=== PATIENT | female | born 1950 | race Caucasian/White ===

== ENCOUNTER 2019-04-08 12:51 | Observation (INO) | payer OTHER ==
--- NOTE | 2019-04-08 13:03 | PDOC ---
History of Present Illness - General Chief Complaint: Nausea/Vomiting Stated Complaint: VOMITING Time Seen by Provider: 04/08/19 13:01 - History of Present Illness Initial Comments: 04/08/19 13:03 Ms. Hu is a 69 yo female w/ pmh of HTN, DM, gastritis (followed by Dr. Birch, started on ranitidine yesterday) and R breast cancer s/p lobectomy in 2009 w/out recurrence who presents for evaluation of upper abdominal pain since this morning that is reminiscent to a prior episode of severe gastritis. Patient denies any associated symptoms and was previously in her normal state of health before symptoms started this morning. The patient denies chest pain, shortness of breath, headache and dizziness. Denies fever, chills, nausea, vomit, diarrhea and constipation. Denies dysuria, frequency, urgency and hematuria. Past History - Past Medical History Allergies/Adverse Reactions: Allergies Allergy/AdvReac Type Severity Reaction Status Date / Time No Known Drug Allergies Allergy Unknown Verified 08/28/16 08:28 Home Medications: Ambulatory Orders Paroxetine HCl [Paxil -] 10 mg PO DAILY 10/12/12 Amlodipine Besylate [Norvasc -] 5 mg PO DAILY 06/26/15 Lisinopril/Hydrochlorothiazide [Lisinopril-Hctz 20-12.5 mg Tab] 1 each PO DAILY 06/26/15 metFORMIN HCL [Glucophage -] 500 mg PO DAILY 08/27/16 Calcium Carbonate/Vitamin D3 [Calcium 500 + Vit D Caplet] 1 each PO DAILY Hydrocodone/Acetaminophen [Vicodin 5-300 mg Tablet] 1 - 2 tab PO TID PRN #50 tablet MDD 6 08/28/16 Anemia: No Asthma: No Cancer: Yes (right lumpectomy rx chemo/radiation) Cardiac Disorders: No CVA: No COPD: No CHF: No Dementia: No Diabetes: Yes GI Disorders: No Disorders: No HTN: Yes Hypercholesterolemia: No Liver Disease: No Seizures: No Thyroid Disease: No - Surgical History Abdominal Surgery: No Appendectomy: No Cardiac Surgery: No Cholecystectomy: No Lung Surgery: No Neurologic Surgery: No Orthopedic Surgery: Yes (LEFT KNEE - ARTHOSCOPY) - Suicide/Smoking/Psychosocial Hx Smoking Status: No Smoking History: Never smoked Have you smoked in the past 12 months: No Number of Cigarettes Smoked Daily: 0 Information on smoking cessation initiated: No Hx Alcohol Use: No Drug/Substance Use Hx: No Substance Use Type: None Hx Substance Use Treatment: No Review of Systems - Review of Systems Comments:: 04/08/19 13:16 GENERAL/CONSTITUTIONAL: No fever or chills. No weakness. HEAD, EYES, EARS, NOSE AND THROAT: No change in vision. No ear pain or discharge. No sore throat. CARDIOVASCULAR: No chest pain or shortness of breath RESPIRATORY: No cough, wheezing, or hemoptysis. GASTROINTESTINAL: +Upper abdominal pain as described. No nausea, vomiting, diarrhea or constipation. GENITOURINARY: No dysuria, frequency, or change in urination. MUSCULOSKELETAL: No joint or muscle swelling or pain. No neck or back pain. SKIN: No rash NEUROLOGIC: No headache, vertigo, loss of consciousness, or change in strength/ sensation. ENDOCRINE: No increased thirst. No abnormal weight change HEMATOLOGIC/LYMPHATIC: No anemia, easy bleeding, or history of blood clots. ALLERGIC/IMMUNOLOGIC: No hives or skin allergy. *Physical Exam - Vital Signs Last Vital Signs Temp Pulse Resp BP Pulse Ox 97.3 F L 77 16 158/80 100 04/08/19 12:56 04/08/19 12:56 04/08/19 12:56 04/08/19 12:56 04/08/19 12:56 - Physical Exam Comments: 04/08/19 13:16 GENERAL: Awake, alert, and fully oriented, in no acute distress HEAD: No signs of trauma, normocephalic, atraumatic EYES: PERRLA, EOMI, sclera anicteric, conjunctiva clear ENT: Auricles normal inspection, hearing grossly normal, nares patent, oropharynx clear without exudates. Moist mucosa NECK: Normal ROM, supple, no lymphadenopathy, JVD, or masses LUNGS: No distress, speaks full sentences, clear to auscultation bilaterally HEART: Regular rate and rhythm, normal S1 and S2, no murmurs, rubs or gallops, peripheral pulses normal and equal bilaterally. ABDOMEN: +Upper abdominal ttp w/ diffuse mild tenderness as well. Soft, normoactive bowel sounds. No guarding, no rebound. No masses EXTREMITIES: Normal inspection, Normal range of motion, no edema. No clubbing or cyanosis. NEUROLOGICAL: Cranial nerves II through XII grossly intact. Normal speech, normal gait, no focal sensorimotor deficits SKIN: Warm, Dry, normal turgor, no rashes or lesions noted. 04/08/19 13:21 ED Treatment Course - LABORATORY CBC & Chemistry Diagram: 04/08/19 13:40 04/08/19 13:40 Medical Decision Making - Medical Decision Making 04/08/19 13:21 Ms. Hu is a 69 yo female w/ pmh as described who presents for evaluation of symptoms concerning for gastritis vs. viral illness vs. other acute abdominal process. Patient evaluated with labs as below and EKG and given meds for symptomatic relief. 04/08/19 13:24 EKG regular rate, regular rhythm, normal access, normal intervals, no ST elevations or depressions. Normal ekg. 04/08/19 17:31 Patient given benadryl and reglan for continued pain with resolution of symptoms. Patient CT negative. Labs significant only for elevated WBC thought to be stress response. No concern for acute process at this time. Suspect symptoms 2/2 GERD. Discharging to home for further outpatient evaluation by GI. 04/08/19 18:40 Patient noted to have unsteady gait upon discharge. Patient given meclizine with continuation of dizziness despite meclizine. Patient will be further evaluated with UA and CXR. 04/08/19 20:41 UA/CXR negative. Patient will be admitted for further evaluation of new onset dizziness. 04/08/19 20:52 Discussed patient with PCP who agrees with admission. Paged Dr. Fajardo who admits for PCP. 04/08/19 20:[address] Fajardo who agrees with admission. Requests admission to hospitalist at this time. Laboratory Results - last 24 hr 04/08/19 04/08/19 04/08/19 13:40 13:40 13:40 WBC 15.2 H RBC 4.87 Hgb 14.3 Hct 42.7 MCV 87.8 MCH 29.3 MCHC 33.4 RDW 13.1 Plt Count 360 MPV 8.3 Absolute Neuts (auto) 12.5 H Neutrophils % 82.4 D Lymphocytes % 11.7 D Monocytes % 5.0 Eosinophils % 0.3 D Basophils % 0.6 Nucleated RBC % 0 Sodium 142 Potassium 3.5 Chloride 110 H Carbon Dioxide 22 Anion Gap 10 BUN 16 Creatinine 0.8 Est GFR (CKD-EPI)AfAm 86.57 Est GFR (CKD-EPI)NonAf 74.70 Random Glucose 147 H Calcium 9.1 Total Bilirubin 0.9 AST 30 ALT 54 Alkaline Phosphatase 155 H Creatine Kinase 161 Creatine Kinase Index 1.1 CK-MB (CK-2) 1.8 Troponin I < 0.02 Total Protein 7.5 Albumin 3.8 Lipase 147 Urine Color Urine Appearance Urine pH Ur Specific [place] Urine Protein Urine Glucose (UA) Urine Ketones Urine Blood Urine Nitrite Urine Bilirubin Urine Urobilinogen Ur Leukocyte Esterase Urine WBC (Auto) Urine RBC (Auto) Urine Casts (Auto) U Epithel Cells (Auto) Urine Bacteria (Auto) 04/08/19 19:51 WBC RBC Hgb Hct MCV MCH MCHC RDW Plt Count MPV Absolute Neuts (auto) Neutrophils % Lymphocytes % Monocytes % Eosinophils % Basophils % Nucleated RBC % Sodium Potassium Chloride Carbon Dioxide Anion Gap BUN Creatinine Est GFR (CKD-EPI)AfAm Est GFR (CKD-EPI)NonAf Random Glucose Calcium Total Bilirubin AST ALT Alkaline Phosphatase Creatine Kinase Creatine Kinase Index CK-MB (CK-2) Troponin I Total Protein Albumin Lipase Urine Color Yellow Urine Appearance Clear Urine pH 7.5 Ur Specific [place] 1.028 Urine Protein 1+ H Urine Glucose (UA) Negative Urine Ketones Negative Urine Blood Negative Urine Nitrite Negative Urine Bilirubin Negative Urine Urobilinogen 0.2 Ur Leukocyte Esterase Negative Urine WBC (Auto) 1 Urine RBC (Auto) 3 Urine Casts (Auto) 0 U Epithel Cells (Auto) 1.7 Urine Bacteria (Auto) 5.6 *DC/Admit/Observation/Transfer Diagnosis at time of Disposition: Vertigo Abdominal pain Qualifiers: Abdominal location: unspecified location Qualified Code(s): R10.9 - Unspecified abdominal pain - Discharge Dispostion Decision to Admit order: Yes - Referrals Referrals: Andrea Smith MD [Primary Care Provider] - Mike Birch MD [Staff Physician] - - Patient Instructions Additional Instructions: You were evaluated today in the ER for your abdominal pain. We evaluated you with laboratory as well as CT abdomen/pelvis which was negative for emergent process. Your symptoms improved with medication. Please follow-up with Dr. Birch next week for further evaluation. Return to ER if any return of symptoms , fever, chills, or other concerning developments. - Post Discharge Activity
[2019-04-08] MEDS ORDERED: FAMOTIDINE 20 MG/50 ML IVPB 20 MG/50 ML MG IVPB ONE ×2 (13:13→13:27)
[2019-04-08] MEDS ORDERED: SODIUM CHLORIDE 1,000 ML IV STA ×2 (13:13→14:58)
[2019-04-08] MEDS ORDERED: ONDANSETRON 4 MG/2 ML VIAL IVPUSH ONE (13:13)
[2019-04-08] MEDS ORDERED: LIDOCAINE VISCOUS 2% ORAL/TOP 20 ML UNIT-DOSE CUP MM ONE (13:13)
[2019-04-08] MEDS ORDERED: MAG HYDROX/AL HYDROX/SIMETH -MYLANTA- ORAL SUSPENSION PO ONE (13:13)
[2019-04-08 13:17] VITALS: BMI 27.8
[2019-04-08] MEDS ORDERED: ONDANSETRON 4 MG/2 ML VIAL ONE (13:27)
[2019-04-08] MEDS ORDERED: MAG HYDROX/AL HYDROX/SIMETH 30 ML UNIT-DOSE CUP ONE (13:27)
[2019-04-08] MEDS ORDERED: LIDOCAINE VISCOUS 2% ORAL/TOP 20 ML UNIT-DOSE CUP ONE (13:27)
[2019-04-08 13:46] LABS: BASO % 0.6 % (0-2.0); EOS % 0.3 % (0-4.5); HEMATOCRIT 42.7 % (32.4-45.2); HEMOGLOBIN 14.3 GM/dL (10.7-15.3); LYMPH % 11.7 % (8-40); MCH 29.3 pg (25.7-33.7); MCHC 33.4 g/dl (32.0-36.0); MEAN CELL VOLUME 87.8 fl (80-96); MEAN PLT VOLUME 8.3 fl (7.5-11.1); NEUT % 82.4 % (42.8-82.8); PLATELET COUNT 360 K/MM3 (134-434); RBC 4.87 M/mm3 (3.60-5.2); RDW 13.1 % (11.6-15.6); WHITE BLOOD COUNT 15.2 K/mm3 (4.0-10.0)
[2019-04-08 14:11] LABS: ALBUMIN 3.8 g/dl (3.4-5.0); ALK PHOS 155 U/L (45-117); ANION GAP 10 MMOL/L (8-16); BILIRUBIN,TOTAL 0.9 mg/dL (0.2-1); BLOOD UREA NITROGEN 16 mg/dL (7-18); CALCIUM 9.1 mg/dL (8.5-10.1); CHLORIDE 110 mmol/L (98-107); CO2 22 mmol/L (21-32); CREATININE 0.8 mg/dL (0.55-1.3); GLUCOSE,RANDOM 147 mg/dL (74-106); POTASSIUM 3.5 mmol/L (3.5-5.1); SGOT/AST 30 U/L (15-37); SGPT/ALT 54 U/L (13-61); SODIUM 142 mmol/L (136-145); TOT PROT 7.5 g/dl (6.4-8.2)
--- NOTE | 2019-04-08 14:13 | PDOC ---
Documentation entered by Magui Mohan SCRIBE, acting as scribe for Jesus Espinosa MD. Jesus Espinosa MD: This documentation has been prepared by the Marques montiel Amanda, SCRIBE, under my direction and personally reviewed by me in its entirety. I confirm that the documentation accurately reflects all work, treatment, procedures, and medical decision making performed by me. Attending Attestation - Resident Resident Name: [email or web address] - ED Attending Attestation I have performed the following: I have examined & evaluated the patient, The case was reviewed & discussed with the resident, I agree w/resident's findings & plan, Exceptions are as noted - HPI HPI: 04/08/19 13:36 The patient is a 69 year old female with a siginificant past medical history of HTN, DM, gastritis (followed by Dr. Birch, started on ranitidine yesterday) and R breast cancer s/p lobectomy in 2009 w/out recurrence who presents for evaluation of upper abdominal pain since this morning. She states this pain feels similar to her gastritis. The patient denies chest pain, shortness of breath, headache and dizziness. Denies fever, chills, nausea, vomit, diarrhea and constipation. Denies dysuria, frequency, urgency and hematuria. - Physicial Exam PE: 04/08/19 15:17 Vitals: Triage vital signs reviewed General Appearance: No acute distress, well nourished, well developed Head: Atraumatic Eyes: Pupils equal reactive round, extraocular movement intact Neck: Supple; No nuchal rigidity Chest Wall: Nontender Cardiac: Regular rate and rhythm, no murmurs, no rubs, no gallops Lungs: Clear to auscultation bilateral, good air movement bilaterally Abdomen: (+) epigatric discomfort on palpation. Soft, nondistended, normal bowel sounds, Extremities: Full range of motion to all extremities, no cyanosis, clubbing, or edema Skin: Warm and dry, no rashes or lesions, no rash, no petechiae Neuro: AOX3; Cranial Nerves 2-12 grossly intact, Strength intact to all extremities, Sensation intact to all extremities, gait normal Psych: Normal mood, normal affect - Medical Decision Making 04/08/19 16:01 69 years old with past medical history significant for hypertension diabetes gastritis presents to the emergency department with upper abdominal discomfort this morning No gallstones noted on bedside ultrasound White count of [address] Dyer to follow up CT and dispo
--- NOTE | 2019-04-08 16:09 | EKG ---
Test Reason : Blood Pressure : / mmHG Vent. Rate : 081 BPM Atrial Rate : 081 BPM P-R Int : 160 ms QRS Dur : 096 ms QT Int : 418 ms P-R-T Axes : 070 076 039 degrees QTc Int : 485 ms NORMAL SINUS RHYTHM NORMAL ECG WHEN COMPARED WITH ECG OF 27-NOV-2012 06:51, NO SIGNIFICANT CHANGE WAS FOUND Confirmed by GEORGE BOLDEN MD ([id number]) on 04/08/2019 4:09:31 PM Referred By: Confirmed By:GEORGE BOLDEN MD
[2019-04-08] MEDS ORDERED: METOCLOPRAMIDE HCL INJECTION 10 MG/2 ML VIAL IVPB ONE (16:14)
[2019-04-08] MEDS ORDERED: METOCLOPRAMIDE HCL INJECTION 10 MG/2 ML VIAL ONE (16:21)
[2019-04-08] MEDS ORDERED: MECLIZINE HCL 25 MG TABLET (FP) PO ONE (18:16)
[2019-04-08] MEDS ORDERED: MECLIZINE HCL 25 MG TABLET (FP) ONE (18:18)
[2019-04-08 20:23] LABS: EPI CELLS 1.7 /HPF (0-5/HPF); PH,URINE 7.5 (5.0-8.0); URINE APPEARANCE CLEAR; URINE BACTERIA 5.6 /hpf (NEGATIVE); URINE BILIRUBIN NEGATIVE (NEGATIVE); URINE CASTS 0 /lpf (0-8); URINE COLOR YELLOW; URINE GLUCOSE (UA) NEGATIVE (NEGATIVE); URINE KETONE NEGATIVE (NEGATIVE); URINE LEUK ESTERASE NEGATIVE (NEGATIVE); URINE NITRITE NEGATIVE (NEGATIVE); URINE PROTEIN 1+ (NEGATIVE); URINE RBC 3 /hpf (0-4); URINE UROBILINOGEN 0.2 mg/dL (0.2-1.0); URINE WBC 1 /hpf (0-5)
--- NOTE | 2019-04-08 21:24 | PN ---
Teaching Attending Note Name of Resident: Max Rausch ATTENDING PHYSICIAN STATEMENT I saw and evaluated the patient. I reviewed the resident's note and discussed the case with the resident. I agree with the resident's findings and plan as documented. SUBJECTIVE: Patient is a 69 year old woman with PMH of HTN, NIDDM, gastritis (followed by Dr. Birch, started on ranitidine yesterday) and R breast cancer s/p lobectomy in 2009 without recurrence who presents for evaluation of upper abdominal pain since this morning that is reminiscent to a prior episode of severe gastritis. Patient had multiple episodes of vomiting and was previously in her normal state of health before symptoms started this morning. The patient denies chest pain, shortness of breath, headache and dizziness. Denies fever, chills, nausea , diarrhea and constipation. Denies dysuria, frequency, urgency and hematuria. She got GI cocktail and IV benadryl and felt better. When she was about to be discharged from the ER, she started filling dizzy and had symptoms suggestive of "vertigo" prompting a head CT scan being done. She was also given a dose of meclizine. OBJECTIVE: Alert and no orthostasis Vital Signs Period Temp Pulse Resp BP Sys/[place]john Pulse Ox Last 24 Hr 97.3 F-98.3 F 77-83 16-16 129-158/72-80 98-100 HEENT: No Jaundice, eye redness or discharge, PERRLA, EOMI. Normocephalic, atraumatic. External ears are normal and hearing is grossly intact. No nasal discharge. Neck: Supple, nontender. No palpable adenopathy or thyromegaly. No JVD Chest: Good effort. Clear to auscultation and percussion. Heart: Regular. No S3, rub or murmur Abdomen: Not distended, soft, nontender and no HSM. No rebound or guarding. Normal bowel sounds. Ext: Peripheral pulses intact. No leg edema. Skin: Warm and dry. No petechiae, rash or ecchymosis. Neuro: Alert. Oriented x3. CN 2-12 grossly intact. Sensation grossly intact in all four extremities and DTR are symmetric. Psych: Appropriate mood and affect. Good insight. Home Medications Medication Instructions Recorded Paroxetine HCl [Paxil -] 10 mg PO DAILY 11/13/12 Amlodipine Besylate [Norvasc -] 5 mg PO DAILY 06/26/15 Lisinopril/Hydrochlorothiazide 1 each PO DAILY 06/26/15 [Lisinopril-Hctz 20-12.5 mg Tab] metFORMIN HCL [Glucophage -] 500 mg PO DAILY 08/27/16 Calcium Carbonate/Vitamin D3 1 each PO DAILY 08/28/16 [Calcium 500 + Vit D Caplet] Hydrocodone/Acetaminophen [Vicodin 1 - 2 tab PO TID PRN #50 tablet 08/28/16 5-300 mg Tablet] MDD 6 Abnormal Lab Results 04/08/19 04/08/19 04/08/19 13:40 13:40 19:51 WBC 15.2 H Absolute Neuts (auto) 12.5 H Chloride 110 H Random Glucose 147 H Alkaline Phosphatase 155 H Urine Protein 1+ H ASSESSMENT AND PLAN: 1. Abdominal pain/Vertigo - Initial symptoms of abdominal pain and vomiting most likely due to gastritis, though the height of the leukocytosis is concerning. Her GI symptoms have since resolved. Dizziness/vertigo likely due to volume loss from vomiting. Will repeat CBC, continue IV NS and use compazine PRN for nausea. No acute abnormality on Head CT and CXR. CT scan of the abdomen shows hepatomegaly with fatty infiltration, tiny gallstones with no evidence of cholecystitis. EKG shows NSR with no significant ST-T wave changes and prolonged QTc. Monitor closely and implement fall precautions. 2. DM For now, we will hold the home diabetes drugs and implement sliding scale insulin regimen. Provide comprehensive diabetes care with patient teaching and counseling about the importance of adherence to prescribed diabetes regimen, euglycemia, eye care and foot care. 3. Hypertension - Restart outpatient antihypertensive drugs and revise regimen to ensure smooth [id number] good BP control. Nonpharmacologic measures to control hypertension like weight loss, salt restriction and exercise discussed. 4. DVT prophylaxis - Lovenox 40 mg SQ q 24 hours. 5. Advance directives - Full code
[2019-04-08] MEDS ORDERED: PROCHLORPERAZINE INJECTION 10 MG/2 ML VIAL IVPB PRN (23:03)
[2019-04-08] MEDS ORDERED: LACTATED RINGERS SOLUTION 1,000 ML IV SCH (23:15)
--- NOTE | 2019-04-08 23:30 | HP ---
CHIEF COMPLAINT: abdominal pain, nausea, and vertigo PCP: Dr. Rosales (admits to [facility] [place] who said admit to hospitalist service) HISTORY OF PRESENT ILLNESS: 69 yo female with PMH Gastritis, NIDDM, HTN, R breast CA 2009 in remission admitted following complaint of severe nausea, abdominal pain, and nonbloody vomiting. Symptoms resolved in ER, however pt found to have episode of dizziness upon standing when attempting to leave following discharge. She was given meclezine which at the time did not help her symptoms, however at this time she states all of her symptoms have resolved and she feels "very well." She does endorse that she has had similar symptoms previous which she describes as the room spinning, most notably sometimes when she first gets up out of bed in the morning. She does endorse that she had these symptoms today while at rest in addition to standing which is abnormal for her. She denies any present dizziness, blurred vision, weakness, palpitations, chest pain, abdominal pain, nausea. ER course was notable for: (1) GI cocktail for gastritis symptoms (2) Meclezine (3) CT A/P mostly unremarkable, CT Head without acute bleed. Recent Travel: denies PAST MEDICAL HISTORY: Gastritis, NIDDM, HTN, R breast CA 2009 in remission PAST SURGICAL HISTORY: Right breast CA removal unsure exact procedure, prior documentation states ? lobectomy? Social History: Smoking: denies Alcohol: denies Drugs: denies Family History: Allergies No Known Drug Allergies Allergy (Unknown, Verified 08/28/16 08:28) HOME MEDICATIONS: Home Medications Medication Instructions Recorded Paroxetine HCl [Paxil -] 10 mg PO DAILY 10/12/12 Amlodipine Besylate [Norvasc -] 5 mg PO DAILY 06/26/15 Lisinopril/Hydrochlorothiazide 1 each PO DAILY 06/26/15 [Lisinopril-Hctz 20-12.5 mg Tab] metFORMIN HCL [Glucophage -] 500 mg PO DAILY 08/27/16 Calcium Carbonate/Vitamin D3 1 each PO DAILY 08/28/16 [Calcium 500 + Vit D Caplet] Hydrocodone/Acetaminophen [Vicodin 1 - 2 tab PO TID PRN #50 tablet 08/28/16 5-300 mg Tablet] MDD 6 REVIEW OF SYSTEMS CONSTITUTIONAL: Absent: fever, chills, diaphoresis, generalized weakness, malaise, loss of appetite, weight change HEENT: Absent: rhinorrhea, nasal congestion, throat pain, throat swelling, difficulty swallowing, mouth swelling, ear pain, eye pain, visual changes CARDIOVASCULAR: Absent: chest pain, syncope, palpitations, irregular heart rate, lightheadedness , peripheral edema RESPIRATORY: Absent: cough, shortness of breath, dyspnea with exertion, orthopnea, wheezing, stridor, hemoptysis GASTROINTESTINAL: abdominal pain, nausea, vomiting, Absent: abdominal distension, diarrhea, constipation, melena, hematochezia GENITOURINARY: Absent: dysuria, frequency, urgency, hesitancy, hematuria, flank pain, genital pain MUSCULOSKELETAL: Absent: myalgia, arthralgia, joint swelling, back pain, neck pain SKIN: Absent: rash, itching, pallor HEMATOLOGIC/IMMUNOLOGIC: Absent: easy bleeding, easy bruising, lymphadenopathy, frequent infections ENDOCRINE: Absent: unexplained weight gain, unexplained weight loss, heat intolerance, cold intolerance NEUROLOGIC: dizziness, unsteady gait Absent: headache, focal weakness or paresthesias, dizziness, unsteady gait, seizure, mental status changes, bladder or bowel incontinence PSYCHIATRIC: Absent: anxiety, depression, suicidal or homicidal ideation, hallucinations. PHYSICAL EXAMINATION Vital Signs - 24 hr 04/08/19 04/08/19 04/08/19 12:56 17:43 23:01 Temperature 97.3 F L 98.3 F Pulse Rate 77 Pulse Rate [ 83 Right Radial] Respiratory 16 16 Rate Blood Pressure 158/80 Blood Pressure 129/72 [Left Arm] O2 Sat by Pulse 100 98 99 Oximetry (%) GEN: A&O X3, No acute distress HEENT: PERRL, EOMI, Moist mucus membranes HEART: RRR, no murmurs noted LUNGS: CTA b/l, no wheezes or rhonchi noted ABDOMEN: Soft, minimal diffuse tenderness to palpation worst in the upper abdomen, normoactive bowel sounds, no guarding EXTREMITIES: no peripheral edema or calf tenderness NEURO: CN II-XII in tact, no gross deficits, 5/5 strength throughout, no sensation deficits Laboratory Results - last 24 hr 04/08/19 04/08/19 04/08/19 13:40 13:40 13:40 WBC 15.2 H RBC 4.87 Hgb 14.3 Hct 42.7 MCV 87.8 MCH 29.3 MCHC 33.4 RDW 13.1 Plt Count 360 MPV 8.3 Absolute Neuts (auto) 12.5 H Neutrophils % 82.4 D Lymphocytes % 11.7 D Monocytes % 5.0 Eosinophils % 0.3 D Basophils % 0.6 Nucleated RBC % 0 Sodium 142 Potassium 3.5 Chloride 110 H Carbon Dioxide 22 Anion Gap 10 BUN 16 Creatinine 0.8 Est GFR (CKD-EPI)AfAm 86.57 Est GFR (CKD-EPI)NonAf 74.70 Random Glucose 147 H Calcium 9.1 Total Bilirubin 0.9 AST 30 ALT 54 Alkaline Phosphatase 155 H Creatine Kinase 161 Creatine Kinase Index 1.1 CK-MB (CK-2) 1.8 Troponin I < 0.02 Total Protein 7.5 Albumin 3.8 Lipase 147 Urine Color Urine Appearance Urine pH Ur Specific [place] Urine Protein Urine Glucose (UA) Urine Ketones Urine Blood Urine Nitrite Urine Bilirubin Urine Urobilinogen Ur Leukocyte Esterase Urine WBC (Auto) Urine RBC (Auto) Urine Casts (Auto) U Epithel Cells (Auto) Urine Bacteria (Auto) 04/08/19 19:51 WBC RBC Hgb Hct MCV MCH MCHC RDW Plt Count MPV Absolute Neuts (auto) Neutrophils % Lymphocytes % Monocytes % Eosinophils % Basophils % Nucleated RBC % Sodium Potassium Chloride Carbon Dioxide Anion Gap BUN Creatinine Est GFR (CKD-EPI)AfAm Est GFR (CKD-EPI)NonAf Random Glucose Calcium Total Bilirubin AST ALT Alkaline Phosphatase Creatine Kinase Creatine Kinase Index CK-MB (CK-2) Troponin I Total Protein Albumin Lipase Urine Color Yellow Urine Appearance Clear Urine pH 7.5 Ur Specific [place] 1.028 Urine Protein 1+ H Urine Glucose (UA) Negative Urine Ketones Negative Urine Blood Negative Urine Nitrite Negative Urine Bilirubin Negative Urine Urobilinogen 0.2 Ur Leukocyte Esterase Negative Urine WBC (Auto) 1 Urine RBC (Auto) 3 Urine Casts (Auto) 0 U Epithel Cells (Auto) 1.7 Urine Bacteria (Auto) 5.6 ASSESSMENT/PLAN: 69 yo female with PMH Gastritis, NIDDM, HTN, R breast CA 2009 in remission admitted following complaint of severe nausea, abdominal pain, and nonbloody vomiting. Symptoms resolved in ER, however pt found to have episode of dizziness upon standing when attempting to leave following discharge. Placed into observation for Neurology consult placed in ED, and monitoring for improvement as pt was unable to ambulate at that time. Dizziness -Possibly orthostasis due to dehydration from vomiting, also given IV benadryl in ED which could have exacerbated symptoms -Neurology consulted in ED -Head CT with mild volume loss but no concerning trauma or bleed -Orthostatic vitals ordered -EKG normal sinus without concerns for ischemia or arrhythmia -Will monitor overnight as symptoms have improved and await further recs from neurology Abdominal Pain likely gastritis vs viral gastroenteritis vs less likely cholecystitis/cholelithiasis/pancreatitis -likely gastritis -Leukocytosis noted at 15, will repeat in AM -LR @ 100 cc/hr -Pepsid -Compazine for nausea as QTc noted borderline elevated @ 485 -CT noted with "tiny gall stone" less likely involved in current symptoms NIDDM -Hold home metformin as could contribute to nausea as well -BGMs BID -ISS for glycemic control HTN -Continue home Norvasc 5 mg PO Daily -Continue Lisinopril/HCTZ 20-12.5 daily -Confirm home medications in AM FEN -LR @ 100 cc/hr -monitor and replete -Full liquid diabetic diet, advance as tolerate, pt already improving and requesting water DVT Prophylaxis -Lovenox 40 mg SQ Daily Disposition Observation Visit type - Emergency Visit Emergency Visit: Yes Care time: The patient presented to the Emergency Department on the above date and was hospitalized for further evaluation of their emergent condition. - New Patient This patient is new to me today: Yes Date on this admission: 04/08/19 - Critical Care Critical Care patient: No
[2019-04-09] MEDS: INSULIN SLIDING SCALE (NOVOLOG) 1 VIAL SQ SCH ×3 (06:05→17:16)
[2019-04-09 08:16] LABS: BASO % 0.5 % (0-2.0); EOS % 0.4 % (0-4.5); HEMATOCRIT 36.2 % (32.4-45.2); HEMOGLOBIN 12.2 GM/dL (10.7-15.3); LYMPH % 21.2 % (8-40); MCH 29.4 pg (25.7-33.7); MCHC 33.6 g/dl (32.0-36.0); MEAN CELL VOLUME 87.5 fl (80-96); MEAN PLT VOLUME 8.6 fl (7.5-11.1); MONO % 6.6 % (3.8-10.2); NEUT % 71.3 % (42.8-82.8); PLATELET COUNT 327 K/MM3 (134-434); RBC 4.14 M/mm3 (3.60-5.2); RDW 13.3 % (11.6-15.6); WHITE BLOOD COUNT 13.3 K/mm3 (4.0-10.0)
--- NOTE | 2019-04-09 08:30 | PN ---
Progress Note (short form) - Note Progress Note: Patient feels better, takes Dulcolax pills at night for constipation, felt dizzy in the morning when she got up but mainly was belching and could not stop it. feels better now, no nausea or vomiting. No abdominal pain. Vital Signs Temperature 98.1 F 04/09/19 06:21 Pulse Rate 72 04/09/19 06:21 Respiratory Rate 18 04/09/19 06:21 Blood Pressure 141/65 04/09/19 06:21 O2 Sat by Pulse Oximetry (%) 97 04/09/19 06:30 Initial Vital Signs Temp Pulse Resp BP Pulse Ox 97.3 F L 77 16 158/80 100 04/08/19 12:56 04/08/19 12:56 04/08/19 12:56 04/08/19 12:56 04/08/19 12:56 GENERAL: The patient is awake, alert, and fully oriented, in no acute distress. HEAD: Normal with no signs of trauma. EYES: PERRL, extraocular movements intact, sclera anicteric, conjunctiva clear. ENT: Ears normal, oropharynx clear without exudates, moist mucous membranes. NECK: Trachea midline, full range of motion, supple. LUNGS: Breath sounds equal, clear to auscultation bilaterally, no wheezes, no crackles, no accessory muscle use. HEART: Regular rate and rhythm, S1, S2 without murmur, rub or gallop. ABDOMEN: Soft, nontender, nondistended, normoactive bowel sounds, no guarding, no rebound, no hepatosplenomegaly, no masses. EXTREMITIES: 2+ pulses, warm, well-perfused, no edema. NEUROLOGICAL: Cranial nerves II through XII grossly intact. Normal speech, gait not observed. PSYCH: Normal mood, normal affect. SKIN: Warm, dry, normal turgor, no rashes or lesions noted cBCD WBC 13.3 K/mm3 (4.0-10.0) H 04/09/19 06:30 RBC 4.14 M/mm3 (3.60-5.2) 04/09/19 06:30 Hgb 12.2 GM/dL (10.7-15.3) 04/09/19 06:30 Hct 36.2 % (32.4-45.2) D 04/09/19 06:30 MCV 87.5 fl (80-96) 04/09/19 06:30 MCHC 33.6 g/dl (32.0-36.0) 04/09/19 06:30 RDW 13.3 % (11.6-15.6) 04/09/19 06:30 Plt Count 327 K/MM3 (134-434) 04/09/19 06:30 MPV 8.6 fl (7.5-11.1) 04/09/19 06:30 CMP Sodium 142 mmol/L (136-145) 04/08/19 13:40 Potassium 3.5 mmol/L (3.5-5.1) 04/08/19 13:40 Chloride 110 mmol/L (98-107) H 04/08/19 13:40 Carbon Dioxide 22 mmol/L (21-32) 04/08/19 13:40 Anion Gap 10 MMOL/L (8-16) 04/08/19 13:40 BUN 16 mg/dL (7-18) 04/08/19 13:40 Creatinine 0.8 mg/dL (0.55-1.3) 04/08/19 13:40 Random Glucose 147 mg/dL (74-106) H 04/08/19 13:40 Calcium 9.1 mg/dL (8.5-10.1) 04/08/19 13:40 Total Bilirubin 0.9 mg/dL (0.2-1) 04/08/19 13:40 AST 30 U/L (15-37) 04/08/19 13:40 ALT 54 U/L (13-61) 04/08/19 13:40 Alkaline Phosphatase 155 U/L (45-117) H 04/08/19 13:40 Total Protein 7.5 g/dl (6.4-8.2) 04/08/19 13:40 Albumin 3.8 g/dl (3.4-5.0) 04/08/19 13:40 CARDIAC ENZYMES Creatine Kinase 161 U/L (26-192) 04/08/19 13:40 Troponin I < 0.02 ng/ml (0.00-0.05) 04/08/19 13:40 CMP Sodium 143 mmol/L (136-145) 04/09/19 06:30 Potassium 3.2 mmol/L (3.5-5.1) L 04/09/19 06:30 Chloride 109 mmol/L (98-107) H 04/09/19 06:30 Carbon Dioxide 25 mmol/L (21-32) 04/09/19 06:30 Anion Gap 9 MMOL/L (8-16) 04/09/19 06:30 BUN 12 mg/dL (7-18) 04/09/19 06:30 Creatinine 0.7 mg/dL (0.55-1.3) 04/09/19 06:30 Est GFR (CKD-EPI)AfAm 101.74 04/09/19 06:30 Est GFR (CKD-EPI)NonAf 87.78 04/09/19 06:30 POC Glucometer 101 UNITS (80-120) 04/09/19 06:04 Random Glucose 97 mg/dL (74-106) 04/09/19 06:30 Calcium 8.6 mg/dL (8.5-10.1) 04/09/19 06:30 Phosphorus 2.3 mg/dL (2.5-4.9) L 04/09/19 06:30 Magnesium 2.5 mg/dL (1.8-2.4) H 04/09/19 06:30 Total Bilirubin 0.9 mg/dL (0.2-1) 04/09/19 06:30 AST 21 U/L (15-37) 04/09/19 06:30 ALT 40 U/L (13-61) 04/09/19 06:30 Alkaline Phosphatase 135 U/L (45-117) H 04/09/19 06:30 Creatine Kinase 161 U/L (26-192) 04/08/19 13:40 Creatine Kinase Index 1.1 % (0.0-5.0) 04/08/19 13:40 CK-MB (CK-2) 1.8 ng/mL (0.5-3.6) 04/08/19 13:40 Troponin I < 0.02 ng/ml (0.00-0.05) 04/08/19 13:40 Total Protein 6.5 g/dl (6.4-8.2) 04/09/19 06:30 Albumin 3.3 g/dl (3.4-5.0) L 04/09/19 06:30 Lipase 147 U/L (73-393) 04/08/19 13:40 Current Medications Generic Name Dose Route Start Last Admin Trade Name Freq PRN Reason Stop Dose Admin Amlodipine Besylate 5 mg 04/09/19 10:00 Norvasc - PO DAILY [facility] Calcium Carbonate/Cholecalciferol 1 tab 04/09/19 10:00 Os-Moo 500+D - PO DAILY [facility] Enoxaparin Sodium 40 mg 04/09/19 10:00 Lovenox - SQ DAILY [facility] Hydrochlorothiazide 12.5 mg 04/09/19 10:00 Hctz - PO DAILY [facility] Lactated Ringer's 1,000 mls @ 75 mls/hr 04/08/19 23:15 04/09/19 04:15 Lactated Ringers Solution IV 75 mls/hr ASDIR [facility] Administration Famotidine/Sodium Chloride 20 mg in 50 mls @ 100 mls/hr 04/09/19 10:00 Pepcid 20 Mg Premixed Ivpb - IVPB BID [facility] Insulin Aspart 1 vial 04/09/19 07:00 04/09/19 06:05 Novolog Vial Sliding Scale - SQ Not Given ACHS [facility] Protocol Lisinopril 20 mg 04/09/19 10:00 Prinivil PO DAILY [facility] Paroxetine HCl 10 mg 04/09/19 10:00 Paxil - PO DAILY [facility] Prochlorperazine Edisylate 2.5 mg 04/08/19 23:03 Compazine Injection - IVPB Q4H PRN NAUSEA AND/OR VOMITING Home Medications Medication Instructions Recorded Paroxetine HCl [Paxil -] 10 mg PO DAILY 10/12/12 Amlodipine Besylate [Norvasc -] 5 mg PO DAILY 06/26/15 Lisinopril/Hydrochlorothiazide 1 each PO DAILY 06/26/15 [Lisinopril-Hctz 20-12.5 mg Tab] metFORMIN HCL [Glucophage -] 500 mg PO DAILY 08/27/16 Calcium Carbonate/Vitamin D3 1 each PO DAILY 08/28/16 [Calcium 500 + Vit D Caplet] Hydrocodone/Acetaminophen [Vicodin 1 - 2 tab PO TID PRN #50 tablet 08/28/16 5-300 mg Tablet] MDD 6 Assessment and Plan: Patient is a 69 yo female with PMHx of Gastritis, NIDDM, HTN, R breast CA 2009 in remission admitted following complaint of severe nausea, abdominal pain, and nonbloody vomiting. # Hypertension Uncontrolled: will hold the Hctz since patient presented with Nausea and dizziness , with electrolyte imbalance - Increased Norvasc to 5mg po Bid . # Electrolyte imbalance: will replete potassium and phos. # Vertigo with nausea and Belcing: Improved now, Head CT is negative. # Constipation: will stop her dulculax for the night, recommended Glycerin supp 2x per day an d increase the Miralax 2 x per day. #Abdominal pain: no further pain. CT scan of the abdomen shows hepatomegaly with fatty infiltration, tiny gallstones with no evidence of cholecystitis. # DM continue home diabetes drugs upon discharge, SS with coverage for now . # Fatty Liver: On Ct ; will advise the patient to resume on low fat diet and weight loss. # Prolonged Qtc: 485 EKG shows NSR with no significant ST-T wave changes , emeka discontinue all the antiemetics DVT prophylaxis - Lovenox 40 mg SQ q 24 hours. Visit type - Emergency Visit Emergency Visit: Yes ED Registration Date: 04/08/19 Care time: The patient presented to the Emergency Department on the above date and was hospitalized for further evaluation of their emergent condition. - New Patient This patient is new to me today: Yes Date on this admission: 04/09/19 - Critical Care Critical Care patient: No - Discharge Referral Referred to [facility] Med P.C.: No
[2019-04-09 08:55] LABS: ALBUMIN 3.3 g/dl (3.4-5.0); BILIRUBIN,TOTAL 0.9 mg/dL (0.2-1); CALCIUM 8.6 mg/dL (8.5-10.1); CREATININE 0.7 mg/dL (0.55-1.3); MAGNESIUM 2.5 mg/dL (1.8-2.4); PHOSPHOROUS 2.3 mg/dL (2.5-4.9); POTASSIUM 3.2 mmol/L (3.5-5.1); TOT PROT 6.5 g/dl (6.4-8.2)
[2019-04-09] MEDS ORDERED: FAMOTIDINE 20 MG/50 ML IVPB 20 MG/50 ML MG IVPB SCH (10:00)
[2019-04-09] MEDS ORDERED: ENOXAPARIN NA (PORCINE) 40 MG/0.4 ML DISP.SYRIN SQ SCH (10:00)
[2019-04-09] MEDS ORDERED: LISINOPRIL 20 MG TABLET (FP) PO SCH (10:00)
[2019-04-09] MEDS ORDERED: POTASSIUM CHLORIDE TABS 20 MEQ TABLET.ER (FP) PO SCH (10:00)
[2019-04-09] MEDS ORDERED: HYDROCHLOROTHIAZIDE 12.5 MG CAPSULE (FP) PO SCH (10:00)
[2019-04-09] MEDS ORDERED: CALCIUM 500MG/VIT-D 200 UNITS COMBO TABLET (FP) PO SCH (10:00)
[2019-04-09] MEDS ORDERED: PARoxetine HCL 10 MG TABLET (FP) PO SCH (10:00)
[2019-04-09] MEDS ORDERED: amLODIPine BESYLATE 5 MG TABLET (FP) PO SCH ×2 (10:00→22:00)
[2019-04-09] MEDS ORDERED: POTASSIUM PHOSPHATE 15 MM in DEXTROSE 5%-WATER - 250 ML IVPB ONE (10:22)
[2019-04-09] MEDS ORDERED: NAPH,MB-DB/K PH,MBDB POWDER PACKET PO ONE (14:10)
[2019-04-09] MEDS ORDERED: GLYCERIN 1 RECTAL SUPPOSITORY, ADULT PR ONE (16:47)
[2019-04-09] MEDS ORDERED: MECLIZINE HCL 12.5 MG TABLET PO ONE (16:49)
--- NOTE | 2019-04-09 17:05 | DS ---
Physical Exam: SUBJECTIVE: Patient seen and examined Patient feels better OBJECTIVE: PHYSICAL EXAM Vital Signs Temperature 97.9 F 04/09/19 15:00 Pulse Rate 59 L 04/09/19 15:00 Respiratory Rate 18 04/09/19 15:00 Blood Pressure 134/63 04/09/19 15:00 O2 Sat by Pulse Oximetry (%) 97 04/09/19 15:00 Initial Vital Signs Temp Pulse Resp BP Pulse Ox 97.3 F L 77 16 158/80 100 04/08/19 12:56 04/08/19 12:56 04/08/19 12:56 04/08/19 12:56 04/08/19 12:56 GENERAL: The patient is awake, alert, and fully oriented, in no acute distress. HEAD: Normal with no signs of trauma. EYES: PERRL, extraocular movements intact, sclera anicteric, conjunctiva clear. ENT: Ears normal, nares patent, oropharynx clear without exudates, moist mucous membranes. NECK: Trachea midline, full range of motion, supple. LUNGS: Breath sounds equal, clear to auscultation bilaterally, no wheezes, no crackles, no accessory muscle use. HEART: Regular rate and rhythm, S1, S2 without murmur, rub or gallop. ABDOMEN: Soft, nontender, nondistended, normoactive bowel sounds, no guarding, no rebound, no hepatosplenomegaly, no masses. EXTREMITIES: 2+ pulses, warm, well-perfused, no edema. NEUROLOGICAL: Cranial nerves II through XII grossly intact. Normal speech, gait is stable. PSYCH: Normal mood, normal affect. SKIN: Warm, dry, normal turgor, no rashes or lesions noted. LABS Laboratory Results - last 24 hr 04/08/19 04/09/19 04/09/19 19:51 06:04 06:30 WBC 13.3 H RBC 4.14 Hgb 12.2 Hct 36.2 D MCV 87.5 MCH 29.4 MCHC 33.6 RDW 13.3 Plt Count 327 MPV 8.6 Absolute Neuts (auto) 9.5 H Neutrophils % 71.3 Lymphocytes % 21.2 D Monocytes % 6.6 Eosinophils % 0.4 Basophils % 0.5 Nucleated RBC % 0 Sodium Potassium Chloride Carbon Dioxide Anion Gap BUN Creatinine Est GFR (CKD-EPI)AfAm Est GFR (CKD-EPI)NonAf POC Glucometer 101 Random Glucose Calcium Phosphorus Magnesium Total Bilirubin AST ALT Alkaline Phosphatase Total Protein Albumin Urine Color Yellow Urine Appearance Clear Urine pH 7.5 Ur Specific [place] 1.028 Urine Protein 1+ H Urine Glucose (UA) Negative Urine Ketones Negative Urine Blood Negative Urine Nitrite Negative Urine Bilirubin Negative Urine Urobilinogen 0.2 Ur Leukocyte Esterase Negative Urine WBC (Auto) 1 Urine RBC (Auto) 3 Urine Casts (Auto) 0 U Epithel Cells (Auto) 1.7 Urine Bacteria (Auto) 5.6 04/09/19 04/09/19 06:30 10:47 WBC RBC Hgb Hct MCV MCH MCHC RDW Plt Count MPV Absolute Neuts (auto) Neutrophils % Lymphocytes % Monocytes % Eosinophils % Basophils % Nucleated RBC % Sodium 143 Potassium 3.2 L Chloride 109 H Carbon Dioxide 25 Anion Gap 9 BUN 12 Creatinine 0.7 Est GFR (CKD-EPI)AfAm 101.74 Est GFR (CKD-EPI)NonAf 87.78 POC Glucometer 101 Random Glucose 97 Calcium 8.6 Phosphorus 2.3 L Magnesium 2.5 H Total Bilirubin 0.9 AST 21 ALT 40 Alkaline Phosphatase 135 H Total Protein 6.5 Albumin 3.3 L Urine Color Urine Appearance Urine pH Ur Specific [place] Urine Protein Urine Glucose (UA) Urine Ketones Urine Blood Urine Nitrite Urine Bilirubin Urine Urobilinogen Ur Leukocyte Esterase Urine WBC (Auto) Urine RBC (Auto) Urine Casts (Auto) U Epithel Cells (Auto) Urine Bacteria (Auto) HOSPITAL COURSE: Date of Admission:04/08/19 Date of Discharge: 04/09/19 Patient is a 69 yo female with PMHx of Gastritis, NIDDM, HTN, R breast CA 2010 in remission admitted following complaint of severe nausea, abdominal pain, and nonbloody vomiting. # Hypertension is better controlled , discontinued Hctz , increased the dose of Norvasc 5mg po bid, and continued Lisinopril 20mg po daily. # Electrolyte imbalance: repleted the potassium and phos. # Vertigo with nausea and Belcing: Improved , will discharge her on meclizine 12.5mg po bid prn, Head CT is negative. # Constipation: will stop her dulculax for the night, recommended Glycerin supp 2x per day an d increase the Miralax 2 x per day. #Abdominal pain: no further pain. CT scan of the abdomen shows hepatomegaly with fatty infiltration, tiny gallstones with no evidence of cholecystitis. follow dr. velarde within a week # DM continue home diabetes drugs upon discharge, SS with coverage for now . # Fatty Liver: On Ct ; will advise the patient to resume on low fat diet and weight loss. # Prolonged Qtc: 485 EKG shows NSR with no significant ST-T wave changes , emeka discontinue all the antiemetics DVT prophylaxis - Lovenox 40 mg SQ q 24 hours. Minutes to complete discharge: 35 Discharge Summary Reason For Visit: VERTIGO,ABDOMINAL PAIN Current Active Problems Abdominal pain (Acute) Vertigo (Acute) Condition: Stable - Instructions Diet, Activity, Other Instructions: Need to stay on Low fat diet , and low sugar diet. follow with dr. velarde in terms of constipation and Fatty Liver that was found on the CT of abdomen and pelvis. Take Meclizine 12.5mg 2x per day as needed. if your symptom worsens please come back to the hospital. Referrals: Mike Birch MD [Staff Physician] - 1 Week Disposition: HOME - Home Medications Comprehensive Discharge Medication List: Ambulatory Orders Paroxetine HCl [Paxil -] 10 mg PO DAILY 10/12/12 metFORMIN HCL [Glucophage -] 500 mg PO DAILY 08/27/16 Calcium Carbonate/Vitamin D3 [Calcium 500 + Vit D Caplet] 1 each PO DAILY Amlodipine Besylate 5 mg PO BID #30 tablet 04/09/19 Lisinopril [Prinivil] 20 mg PO DAILY #30 tablet 04/09/19 Meclizine HCl [Antivert -] 12.5 mg PO BID PRN #20 tablet 04/09/19 This patient is new to me today: Yes Date on this admission: 04/09/19 Emergency Visit: Yes ED Registration Date: 04/08/19 Care time: The patient presented to the Emergency Department on the above date and was hospitalized for further evaluation of their emergent condition. Critical Care patient: No - Discharge Referral Referred to [facility] Med P.C.: No
[2019-04-09 17:07] VITALS: BP 130/61; PULSE 65; TEMP 98.4
[2019-04-09] MEDS: MECLIZINE HCL 12.5 MG TABLET PO PRN ×2 (17:21→17:32)
[2019-04-10] MEDS ORDERED: LISINOPRIL 20 MG TABLET (FP) PO SCH (10:00)
--- NOTE | 2019-04-10 23:40 | CON.NEURO ---
Consult - History of Present Illness Chief Complaint: dizziness - History Source History Provided By: Patient - Alcohol/Substance Use Hx Alcohol Use: No - Smoking History Smoking history: Never smoked Have you smoked in the past 12 months: No Aproximately how many cigarettes per day: 0 Home Medications - Allergies Allergies/Adverse Reactions: Allergies Allergy/AdvReac Type Severity Reaction Status Date / Time No Known Drug Allergies Allergy Unknown Verified 08/28/16 08:28 - Home Medications Home Medications: Ambulatory Orders Paroxetine HCl [Paxil -] 10 mg PO DAILY 10/12/12 metFORMIN HCL [Glucophage -] 500 mg PO DAILY 08/27/16 Calcium Carbonate/Vitamin D3 [Calcium 500 + Vit D Caplet] 1 each PO DAILY Amlodipine Besylate 5 mg PO BID #30 tablet 04/09/19 Lisinopril [Prinivil] 20 mg PO DAILY #30 tablet 04/09/19 Meclizine HCl [Antivert -] 12.5 mg PO BID PRN #20 tablet 04/09/19 Physical Exam-Neuro Vital Signs: Vital Signs Temperature 98.4 F 04/09/19 16:30 Pulse Rate 65 04/09/19 16:30 Respiratory Rate 20 04/09/19 16:30 Blood Pressure 130/61 04/09/19 16:30 O2 Sat by Pulse Oximetry (%) 97 04/09/19 15:00 Labs: CBC, BMP 04/09/19 06:30 04/09/19 06:30
== END 2019-04-09 18:08 | disposition home or self-care (01) ==
LOC: JER 12:51 → JERBED 20:43 → J8W 23:59
PROVIDERS: ADMIT Internal Medicine; ATTEND Internal Medicine
PROC: 3E033GC Introduction of Other Therapeutic Substance into Peripheral Vein, Percutaneous Approach (ICD-10-PCS; principal; 2019-04-08)
PROC: 3E0337Z Introduction of Electrolytic and Water Balance Substance into Peripheral Vein, Percutaneous Approach (ICD-10-PCS; 2019-04-08)
PROC: 3E013GC Introduction of Other Therapeutic Substance into Subcutaneous Tissue, Percutaneous Approach (ICD-10-PCS; 2019-04-08)
DX: R10.10 Upper abdominal pain, unspecified (principal); R42 Dizziness and giddiness; R11.0 Nausea; R14.2 Eructation; K59.00 Constipation, unspecified; E11.9 Type 2 diabetes mellitus without complications; I10 Essential (primary) hypertension; K29.70 Gastritis, unspecified, without bleeding; K76.0 Fatty (change of) liver, not elsewhere classified; I45.81 Long QT syndrome; E87.8 Other disorders of electrolyte and fluid balance, not elsewhere classified
CPT/HCPCS: 36415; 70450-TC; 71045-TC-FY; 74177-TC; 80053; 81003; 82550; 82553; 82962; 83690; 83735; 84100; 84484; 85025; 87086; 93005; 93010; 96365; 96366; 96367; 96372; 96375; 99283-25; G0378; J7030

== ENCOUNTER 2021-04-11 09:02 | Emergency (ER) | payer OTHER ==
[2021-04-11 09:07] VITALS: BMI 30.2
[2021-04-11] MEDS ORDERED: ACTIVATED CHARCOAL 260 MG CAPSULE PO ONE ×2 (09:24→09:48)
[2021-04-11] MEDS ORDERED: CHARCOAL/WATER SOLUTION 25 GM/120 ML TUBE ONE ×2 (09:39→09:56)
[2021-04-11] MEDS ORDERED: CHARCOAL/SORBITOL SOLUTION 25 GM/120 ML BTL ONE (09:41)
[2021-04-11 09:43] LABS: EOS % 1.5 % (0-4.5); HEMATOCRIT 42.6 % (32.4-45.2); HEMOGLOBIN 14.8 GM/dL (10.7-15.3); LYMPH % 35.3 % (8-40); MCH 30.7 pg (25.7-33.7); MCHC 34.7 g/dl (32.0-36.0); MEAN CELL VOLUME 88.4 fl (80-96); MEAN PLT VOLUME 8.5 fl (7.5-11.1); MONO % 7.8 % (3.8-10.2); NEUT % 54.4 % (42.8-82.8); PLATELET COUNT 314 K/MM3 (134-434); RBC 4.81 M/mm3 (3.60-5.2); RDW 13.4 % (11.6-15.6); WHITE BLOOD COUNT 7.9 K/mm3 (4.0-10.0)
[2021-04-11] MEDS ORDERED: NOREPINEPHRINE BITARTRATE 16,000 MCG in SODIUM CHLORIDE 484 ML IV SCH (09:45)
[2021-04-11 09:49] LABS: URINE APPEARANCE CLEAR; URINE BILIRUBIN NEGATIVE (NEGATIVE); URINE COLOR YELLOW; URINE GLUCOSE (UA) NEGATIVE (NEGATIVE); URINE KETONE NEGATIVE (NEGATIVE); URINE LEUK ESTERASE NEGATIVE (NEGATIVE); URINE NITRITE NEGATIVE (NEGATIVE); URINE PROTEIN TRACE (NEGATIVE); URINE UROBILINOGEN 0.2 mg/dL (0.2-1.0)
[2021-04-11] MEDS ORDERED: ONDANSETRON 4 MG/2 ML VIAL IVPUSH ONE ×2 (09:53→10:52)
[2021-04-11 09:58] LABS: INR 1.02 (0.83-1.09); PROTHROMBIN TIME (PATIENT) 12.3 SEC (9.7-13.0)
[2021-04-11 09:59] LABS: VENOUS BASE EXCESS 2.1 mmol/L (-2-2); VENOUS O2 SATURATION 77.8 % (70-80); VENOUS PCO2 40.4 mmHg (38-52); VENOUS PH 7.434 (7.310-7.410)
[2021-04-11 10:00] LABS: ACTIVATED PTT 29.1 SECONDS (25.2-36.5)
[2021-04-11] MEDS ORDERED: GLUCAGON 1 MG KIT ONE (10:04)
[2021-04-11] MEDS ORDERED: GLUCAGON 1 MG KIT IVPUSH ONE (10:06)
[2021-04-11] MEDS ORDERED: INSULIN REGULAR HUMAN 100 UNITS/ML *VIAL* (FOR IVP) IVPUSH ONE (10:07)
[2021-04-11 10:09] LABS: CHLORIDE 107 mmol/L (98-107); SODIUM 140 mmol/L (136-145)
[2021-04-11] MEDS ORDERED: DEXTROSE 50%-WATER - 25 GM/50 ML VIAL IVPUSH ONE (10:09)
[2021-04-11] MEDS ORDERED: ONDANSETRON 4 MG/2 ML VIAL ONE ×2 (10:09→10:56)
[2021-04-11 10:12] LABS: ALBUMIN 3.8 g/dl (3.4-5.0); ANION GAP 6 MMOL/L (8-16); BLOOD UREA NITROGEN 14.1 mg/dL (7-18); CO2 27 mmol/L (21-32); GLUCOSE,RANDOM 105 mg/dL (74-106); MAGNESIUM 2.3 mg/dL (1.8-2.4)
[2021-04-11 10:15] LABS: METHADONE, UR NEGATIVE ng/ml (CUTOFF=300); OPIATES, URI NEGATIVE ng/ml (CUTOFF=300); PHENCYCLIDINE,URINE NEGATIVE ng/ml (CUTOFF=25); URINE BENZODIAZEPINES NEGATIVE ng/ml (CUTOFF=200)
[2021-04-11 10:15] LABS: CREATININE 0.8 mg/dL (0.55-1.3); PHOSPHOROUS 2.4 mg/dL (2.5-4.9); SGOT/AST 25 U/L (15-37); SGPT/ALT 48 U/L (13-61)
[2021-04-11] MEDS ORDERED: INSULIN REGULAR 100 UNITS in SODIUM CHLORIDE 99 ML IVPB SCH (10:15)
[2021-04-11 10:16] LABS: TOT PROT 7.7 g/dl (6.4-8.2)
[2021-04-11 10:16] LABS: URINE AMPHETAMINES NEGATIVE ng/ml (CUTOFF=500); URINE BARBITURATES NEGATIVE ng/ml (CUTOFF=200)
[2021-04-11 10:18] LABS: COCAINE, UR NEGATIVE ng/ml (CUTOFF=300)
[2021-04-11 10:18] LABS: ALK PHOS 121 U/L (45-117)
[2021-04-11] MEDS ORDERED: LACTATED RINGERS SOLUTION 1000 ML INFUS.BAG IV ONE (11:01)
[2021-04-11 13:47] VITALS: TEMP 98.1
[2021-04-11 14:52] VITALS: BP 112/65; PULSE 62
== END 2021-04-11 12:00 | disposition short-term general hospital (02) ==
LOC: JER 09:02
PROC: 3E033NZ Introduction of Analgesics, Hypnotics, Sedatives into Peripheral Vein, Percutaneous Approach (ICD-10-PCS; principal; 2021-04-11)
PROC: 3E033GC Introduction of Other Therapeutic Substance into Peripheral Vein, Percutaneous Approach (ICD-10-PCS; 2021-04-11)
PROC: 3E013VG Introduction of Insulin into Subcutaneous Tissue, Percutaneous Approach (ICD-10-PCS; 2021-04-11)
DX: T44.7X1A Poisoning by beta-adrenoreceptor antagonists, accidental (unintentional), initial encounter (principal)
CPT/HCPCS: 36415; 71045-TC-FY; 80053; 80307; 81003; 82803; 82962; 83605; 83735; 84100; 85025; 85610; 85730; 86850; 86900; 86901; 93005; 93010; 99291